=== PATIENT | female | born 1990 | race Caucasian/White ===

== ENCOUNTER 2017-04-29 13:11 | Observation (INO) | payer BC ==
[2017-04-29] MEDS ORDERED: RINGER'S SOLUTION,LACTATED 1,000 ML IV PRN (13:49)
[2017-04-29 14:05] LABS: Hemoglobin 9.9 gm/dL (12.5-16.0); Mean Cell Volume 79.6 fl (78-100); Mean Corpuscular Hemoglobin 26.3 pg (27-31); Mean Platelet Volume 10.6 fl (6.0-9.5); Neutrophil # 8.4 K/mm3 (1.3-6.0); Neutrophil % 76.4 % (42-75.0); Platelet Count 189 K/mm3 (150-450); Red Blood Count 3.77 M/mm3 (4.2-5.4); Red Cell Distribution Width 13.2 % (11.5-14.0)
[2017-04-29] MEDS ORDERED: OXYTOCIN/DEXTROSE 5%-WATER 30 UNITS/500 ML BAG IV ONE ×2 (14:09→20:49)
[2017-04-29] MEDS ORDERED: LIDOCAINE HCL 50 ML VIAL PERI PRN (14:09)
[2017-04-29] MEDS ORDERED: BUPIVACAINE HCL/0.9 % NACL/PF 250 ML EP PRN (14:14)
[2017-04-29] MEDS ORDERED: ONDANSETRON HCL/PF 2 MG/ML VIAL IV PRN (14:14)
[2017-04-29] MEDS ORDERED: NALOXONE HCL 1 MG/1 ML SYRG IV PRN (14:14)
[2017-04-29] MEDS ORDERED: BUPIVACAINE HCL/PF 30 ML VIAL EP SCH (14:15)
[2017-04-29] MEDS: RINGER'S SOLUTION,LACTATED 1,000 ML IV PRN (14:40)
[2017-04-29] MEDS ORDERED: FLU VACC QS2017-18(6MOS UP)/PF 60 MCG/0.5 ML SYRINGE IM ONE (14:44)
[2017-04-29 14:51] VITALS: BP 108/64
--- NOTE | 2017-04-29 15:12 | OR ---
Anesthesia Procedure Note - Anesthesia Procedure Note Date of Service: 04/29/17 Narrative: Vital Signs - Last Taken Temp 36.2 C L 04/29/17 14:43 Pulse 88 04/29/17 14:43 Resp 20 04/29/17 14:43 BP 108/64 04/29/17 14:43 Pulse Ox 100 04/29/17 14:43 04/29/17 15:12 ANESTHESIA PROCEDURE NOTE Date of Procedure: 04/29/2017. Time of procedure: 1450. Performed by: Singh White CRNA Communications Professional: None. Preprocedure diagnosis: Active labor. Post procedure diagnosis: Same. Procedure: Insertion of labor epidural. Indications: The patient is a 26 -year-old female in active labor requesting labor epidural for pain management. Findings: See below. Details of the procedure: The patient was placed in a sitting position. DuraPrep as well as Betadine swabs X3 was applied to the patient's back. Patient was then draped in a sterile fashion. Lidocaine 1% was infiltrated to the skin and subcutaneous tissues at the level of the L3-4 interspace. The epidural space was identified using a 18-gauge Tuohy needle with loss-of- resistance technique. Epidural catheter was inserted to a depth of 12 centimeters at skin. Negative test dose was elicited using 3 mL of 1.5% preservative-free lidocaine plus epinephrine 1 200,000. The epidural catheter was then taped and secured in place. A loading dose of 8 mL of 0.25% preservative-free bupivacaine was administered to the epidural catheter after negative aspiration for blood and CSF. EBL: Minimal. Fluids: N/A. Specimen: N/A. Post procedure condition: The patient tolerated the procedure well. No complications were noted. Thank you for this consultation. Singh White CRNA
[2017-04-29 16:08] LABS: Albumin * 2.4 gm/dl (3.4-5.0); Anion Gap 18.3 mmol/L (6.8-13.8); BUN/Creatinine Ratio 9.9 (9.0-21.6); Bilirubin, Total 0.5 mg/dL (0.0-1.1); Ca. Corrected For Albumin 9.6 mg/dL (8.4-10.2); Calcium * 8.6 mg/dL (7.9-10.9); Carbon Dioxide 19.1 mmol/L (24-32.6); Potassium 3.4 mmol/L (3.4-4.6); Total Protein 6.3 gm/dL (6.2-8.2)
[2017-04-29] MEDS ORDERED: DEXTROSE 5%-LACTATED RINGERS 1,000 ML IV PRN (18:40)
[2017-04-29] MEDS ORDERED: DEXTROSE 5 % IN WATER 1,000 ML IV PRN (18:40)
[2017-04-30] MEDS: RINGER'S SOLUTION,LACTATED 1,000 ML IV PRN (05:38)
--- NOTE | 2017-04-30 09:54 | PN ---
Subjective - Date and Time Seen Date: 04/30/17 Subjective Narrative: Labor note 26 yo, at 37.6 week. Patient admitted for labor with severe labor pain. heart rate was down to the 90s with contractions and at 90s intermittently for a period of at least 30 min. She was dilated to 2 cm, 50% and -3 at the time by my exam. However, per the nurse Marissa, the baby's head came down to 0 station with contractions. In addition, she had a precipitous delivery at last , where she progressed from 3 cm to complete in 5 min. Given the history above, she was admitted for labor. She received epidural soon after admission. She was kinza on her own every 2-3 min after epidural. Pitocin was started for augmentation around 9:45 pm after contraction spaced out. This mornong, pitocin was 10 mu/min. Her contractions was about every 2 min. cervix this mornin.5 cm, 50% and -3. FHR: reassuring, 125s with accels and no decels. 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 status has been reassuring after epidural placement yesterday. Given making minimal cervical change overnight, I offered the patient to stop the pitocin now and hold the epidural to reassess her pain and labor progress instead of continuing pitocin for augmentation. we discussed the possibility of letting her go home if she does not make progress and the status remains reassuring. patient agreed with plan to stop the pitocin and epidural and reassess the labor progress and she also agreed to go home later today if remains stable. Sandra Limon MD Objective - Vitals Vitals: Last Vital Signs Temp 36.2 C L 04/29/17 15:13 Pulse 88 04/29/17 15:13 Resp 20 04/29/17 15:13 BP 108/64 04/29/17 15:13 Pulse Ox 100 04/29/17 15:13 - Abnormal Lab Findings Abnormal Lab Findings: Abnormal Lab Results 04/29/17 04/29/17 Range/Units 14:00 14:00 WBC 11.0 H (4.0-10.5) K/mm3 RBC 3.77 L (4.2-5.4) M/mm3 Hgb 9.9 L (12.5-16.0) gm/dL Hct 30.0 L (37.0-47.0) % MCH 26.3 L (27-31) pg MPV 10.6 H (6.0-9.5) fl Immature Gran % (Auto) 0.80 H (0.001-0.429) % Immature Gran # (Auto) 0.09 H (0.000-0.0310) K/mm3 Neutrophils % 76.4 H (42-75.0) % Lymphocytes % 17.3 L (20-51) % Neutrophils # 8.4 H (1.3-6.0) K/mm3 Carbon Dioxide 19.1 L (24-32.6) mmol/L Anion Gap 18.3 H (6.8-13.8) mmol/L Random Glucose 69 L (70-110) mg/dL Albumin 2.4 L (3.4-5.0) gm/dl Cauti Physician Documentation - Urinary Catheter Management Urethral (Brown) Date of Insertion: 04/29/17 Time of Insertion: 16:00
--- NOTE | 2017-04-30 16:48 | DS ---
(1) Threatened labor at term Problem: Acute (2) Abnormal heart rate or rhythm affecting management of mother Problem: Acute Description of Stay: 26 yo, at 37.6 week. She was admitted for labor with severe labor pain. heart rate was down to the 90s with contractions and at 90s intermittently for a period of at least 30 min. Cervix was dilated to 2 cm, 50% and -3 at admission. However, the baby's head came down to 0 station with contractions. Patient had history of a precipitous delivery at last , where she progressed from 3 cm to complete in 5 min. Therefore she was admitted for labor and received epidural for pain control. Pitocin augmentation was started after contractions spaced. However, she made minimal cerivcal change throughout her stay overnight. Cervix dilated to 2-3 cm, 50% and -3. Precipitous labor was ruled out. status remained reassuring. Discussed with patient that she was not in active labor and offered to go home. Patient agreed. She was discharged home in stable condition. Procedures Performed: see notes below - epidural analgesia Discharge Disposition: Home self care Disposition: Home self-care Condition: Good Discharge Activity: Activity as tolerated Discharge Diet: General/regular food Problem Oriented Discharge Instructions to Patient/Family: [place] Álvarez Contractions Additional Patient Instructions (free text): Follow up with Dr. Herrera this week. If you do not have a follow up appointment made, please call the office [phone] on monday to schedule an appointment. Please feel free to call the [facility] with any questions or concerns [phone]. Complete Home Medications List: Complete Home Medication List: Calcium Carbonate [Calcium] 500 mg PO DAILY 04/29/17 Vits96/Iron Fum/Folic [ S] 1 tab PO DAILY 04/29/17 Pyridoxine HCl (Vitamin B6) [Vitamin B-6] 25 mg PO DAILY 04/29/17
== END 2017-04-30 16:35 | disposition home or self-care (01) ==
LOC: OBCLINIC 13:11 → OB 13:42 → INTOOBSV 13:42
PROVIDERS: ADMIT Obstetrics & Gynecology; ATTEND Obstetrics & Gynecology
DX: O47.1 False labor at or after 37 completed weeks of gestation (principal)
CPT/HCPCS: 36415; 59025; 80053; 85025; 86850; 86900; G0378; J2405

== ENCOUNTER 2017-05-17 10:08 | Inpatient (IN) | payer BC ==
[2017-05-17] MEDS ORDERED: LIDOCAINE HCL 50 ML VIAL PERI PRN (10:13)
[2017-05-17] MEDS ORDERED: ONDANSETRON HCL/PF 2 MG/ML VIAL IV PRN ×2 (10:13→22:07)
[2017-05-17] MEDS ORDERED: BUTORPHANOL TARTRATE 2 MG/ML VIAL IV PRN (10:13)
[2017-05-17] MEDS ORDERED: RINGER'S SOLUTION,LACTATED 1,000 ML IV ONE (10:13)
[2017-05-17] MEDS ORDERED: OXYTOCIN/DEXTROSE 5%-WATER 30 UNITS/500 ML BAG IV ONE ×3 (10:13→23:39)
[2017-05-17] MEDS ORDERED: RINGER'S SOLUTION,LACTATED 1,000 ML IV PRN (11:01)
[2017-05-17] MEDS: DEXTROSE 5%-LACTATED RINGERS 1,000 ML IV PRN ×2 (18:01→23:01)
--- NOTE | 2017-05-17 20:42 | PN ---
Progess Note - Interim Narrative: 05/17/17 20:40 Pt uncomfortable. Stadol wearing off. VSS SVE: /-2, AROM-clear FHTs: 120's, mod pamela, no decels, + accels [place]: q2 min A/P: GBS neg Anticipate FHTs reassuring.
[2017-05-17] MEDS ORDERED: NALOXONE HCL 1 MG/1 ML SYRG IV PRN (22:07)
[2017-05-17] MEDS ORDERED: BUPIVACAINE HCL/0.9 % NACL/PF 250 ML EP PRN (22:07)
[2017-05-17] MEDS ORDERED: fentaNYL CITRATE/PF 50 MCG/ML AMPUL IT SCH (22:15)
[2017-05-17] MEDS ORDERED: fentaNYL CITRATE/PF 50 MCG/ML AMPUL ONE (22:16)
--- NOTE | 2017-05-17 22:21 | OR ---
Anesthesia Pre Procedure Eval Date of Service: 05/17/17 Pre Procedure Evaluation: Anesthesia Pre Procedure Evaluation Heart Rate: 93 Blood Pressure: 119/82 Temperature: 36.6C Respiratory Rate: 18 SaO2: 93 DATE: 05/17/2017 TIME: 10:20 PM INDICATIONS: Active labor, labor pain PAST MEDICAL HISTORY: Altered per patient active labor requesting labor analgesia. She has had an epidural for the sling for 2 weeks ago which obviously she was in labor at that time. 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 History of GERD: No History of smoking: No History of sleep apnea: [No EXAM: Heart regular; lungs clear ASSESSMENT OF MEDICAL STATUS: Apparently appropriate candidate for labor analgesia PLANNED PROCEDURE: Combination spinal epidural for labor analgesia Home Medications: HOME MEDICATIONS Calcium Carbonate [Calcium] 500 mg PO DAILY 04/29/17 [Last Taken 05/16/17] Vits96/Iron Fum/Folic [ S] 1 tab PO DAILY 04/29/17 [Last Taken 05/16/17] Pyridoxine HCl (Vitamin B6) [Vitamin B-6] 25 mg PO DAILY 04/29/17 [Last Taken ] Famotidine [Pepcid] 40 mg PO BID 05/17/17 [Last Taken 05/16/17]
--- NOTE | 2017-05-17 23:00 | OR ---
Anesthesia Procedure Note - Anesthesia Procedure Note Date of Service: 05/17/17 Narrative: 05/17/17 22:51 ANESTHESIA PROCEDURE NOTE Date of Procedure: 05/17/2017 Time of procedure: 10:20 PM. Performed by: YASMIN Foss CRNA, MSN Chef German: Leonardo Barnett RN. Preprocedure diagnosis: Active labor, labor pain. Post procedure diagnosis: Same. Procedure: Intrathecal for labor analgesia Indications: Labor pain. Findings: See below. Details of the procedure: The patient was placed on the side of the bed in sitting positionand prepped with DuraPrep then draped in a sterile fashion. After much effort was placed in positioning the patient situated epidural could be approached the patient was in a relatively reasonable position, albeit less than optimal in that she was unable to significantly decrease the curvature in the lumbar area. Additionally she was unable to refrain from moving during the procedure even though it appeared as if she was attempting to keep still. Lidocaine 1% was infiltrated to the skin and subcutaneous tissues at the level of the L3 4 interspace. An 18-gauge Touhy needle was used to approach the epidural space with loss of resistance technique. Initially she related pain to the right side advancing the needle and syringe adjusted more to the left. Once loss of resistance was achieved, syringe was removed, free flow of CSF was observed. 50 mcg of fentanyl was injected and the epidural needle was removed. EBL: Minimal. Fluids: N/A. Specimen: N/A. Post procedure condition: The patient tolerated the procedure well with good relief. No complications were noted. Thank you for this consultation. Adarsh Dominguez CRNA, ARNP, MSN
[2017-05-17] MEDS ORDERED: SENNOSIDES 8.6 MG TABLET PO PRN (23:39)
[2017-05-17] MEDS ORDERED: HYDROCORTISONE 30 APPL TUBE TP PRN (23:39)
[2017-05-17] MEDS ORDERED: BENZOCAINE/MENTHOL 81 SPRAY CAN TP PRN (23:39)
[2017-05-17] MEDS ORDERED: BISACODYL 10 MG SUPP.RECT RC PRN (23:39)
[2017-05-17] MEDS ORDERED: oxyCODONE HCL/ACETAMINOPHEN 1 TAB TABLET PO PRN ×2 (23:39)
[2017-05-17] MEDS ORDERED: GLYCERIN/WITCH HAZEL LEAF 40 APPL BOX TP PRN (23:39)
--- NOTE | 2017-05-17 23:42 | OR ---
Operative Report - Dictated Report Narrative: Spontaneous Vaginal Delivery Viable female with APGARS of 9 and 9 at 5 minutes. She delivered at 2347. Presentation was KIKI. A loose nuchal cord 2 was reduced after delivery of the head. The right anterior shoulder delivered with gentle downward traction followed by the posterior shoulder and the remainder of the baby. Baby was placed on the maternal abdomen and spontaneous cry was noted. The cord was clamped and cut after approximately 60 seconds. Skin to skin was then performed. Weight: 7 pounds 2.8 ounces or 3256 g Placenta was delivered spontaneously and intact. Bilateral periurethral abrasions were noted and hemostatic without repair. Estimated blood loss: 100 ml Mother and baby tolerated delivery well. History for Definition: * The number of deliveries resulting in a live the patient experienced prior to current hospitalization * The previous delivery of live twins or any live multiple gestation is considered one live event. *If primagravida or nulliparous is documented select zero for the number of previous live births. Live Events: 2
[2017-05-18] MEDS: IBUPROFEN 800 MG TABLET PO PRN ×2 (00:06→12:20)
[2017-05-18] MEDS: DOCUSATE SODIUM 100 MG CAPSULE PO SCH ×2 (09:50→20:53)
--- NOTE | 2017-05-18 10:25 | PN ---
Progess Note - Interim Narrative: 05/18/17 10:21 progress note Subjective: The patient is doing well. She is ambulating, voiding, tolerating by mouth. She has minimal pain and moderate lochia. Objective: General: No acute distress Abdomen: Soft, nontender, fundus is firm just below the umbilicus Extremities: minimal edema, nontender to palpation Assessment and plan: day [1 Feeding: Breast Pain: Controlled with by mouth medication Routine pp care
[2017-05-19] MEDS: IBUPROFEN 800 MG TABLET PO PRN (07:02)
[2017-05-19 07:23] VITALS: BP 114/70
[2017-05-19] MEDS: DOCUSATE SODIUM 100 MG CAPSULE PO SCH (09:56)
--- NOTE | 2017-05-19 12:23 | PN ---
Progess Note - Interim Narrative: 05/19/17 12:22 progress note Subjective: The patient is doing well. She is ambulating, voiding, tolerating by mouth. She has minimal pain and moderate lochia. Objective: General: No acute distress Abdomen: Soft, nontender, fundus is firm just below the umbilicus Extremities: minimal edema, nontender to palpation Assessment and plan: day 2 Feeding: Breast Pain: Controlled with by mouth medication BC: barrier Routine pp care
== END 2017-05-19 14:25 | disposition home or self-care (01) | DRG 775 ==
LOC: OB 10:08
PROVIDERS: ADMIT Obstetrics & Gynecology Gynecologic Oncology; ATTEND Obstetrics & Gynecology Gynecologic Oncology
PROC: 10E0XZZ Delivery of Products of Conception, External Approach (ICD-10-PCS; principal; 2017-05-18)
PROC: 10907ZC Drainage of Amniotic Fluid, Therapeutic from Products of Conception, Via Natural or Artificial Opening (ICD-10-PCS; 2017-05-18)
PROC: 4A1HXCZ Monitoring of Products of Conception, Cardiac Rate, External Approach (ICD-10-PCS; 2017-05-18)
PROC: 00HU33Z Insertion of Infusion Device into Spinal Canal, Percutaneous Approach (ICD-10-PCS; 2017-05-18)
DX: O69.81X0 Labor and delivery complicated by cord around neck, without compression, not applicable or unspecified (principal); K21.9 Gastro-esophageal reflux disease without esophagitis; Z3A.40 40 weeks gestation of pregnancy; Z37.0 Single live birth